=== PATIENT | female | born 1975 ===

== ENCOUNTER → 2016-11-16 | Outpatient (REF) | LOC: WSOH 13:23 → WSPT 14:30 | DX: Z02.1 Encounter for pre-employment examination (principal) ==

== ENCOUNTER → 2016-12-09 | Outpatient (REF) | LOC: WSOH 14:20 | DX: Z23 Encounter for immunization (principal) ==

== ENCOUNTER → 2016-12-25 | Outpatient (REF) | LOC: WSOH 15:40 | DX: Z23 Encounter for immunization (principal) ==

== ENCOUNTER → 2016-12-29 | Outpatient (REF) | LOC: WSOH 14:30 | DX: Z01.89 Encounter for other specified special examinations (principal) ==

== ENCOUNTER → 2017-05-28 | Outpatient (REF) | LOC: WSOH 15:14 | DX: Z23 Encounter for immunization (principal) ==